=== PATIENT | male | born 1950 | race Caucasian/White ===

== ENCOUNTER → 2021-07-20 | Outpatient (CLI) | payer OTHER | END | disposition home or self-care (01) | LOC: LAB 14:05 → LAB SHORT 14:05 | DX: N39.0 Urinary tract infection, site not specified (principal) | CPT/HCPCS: 87077; 87086; 87186 ==

== ENCOUNTER → 2021-08-08 | Outpatient (CLI) | payer OTHER | END | disposition home or self-care (01) | LOC: LAB 11:45 → LAB SHORT 11:45 | DX: N39.0 Urinary tract infection, site not specified (principal) | CPT/HCPCS: 87077; 87086; 87186 ==

== ENCOUNTER 2024-01-27 08:08 | Day surgery (SDC) | payer OTHER ==
[2024-01-27] VITALS (15 sets, daily range): BP systolic 104–142; BP diastolic 70–97
[~2024-01-27] VITALS: Ht 188 cm; Wt 90.0 kg
[~2024-01-27 08:08] MED LIST: ATOR20; NS 500 ML IV SCH
--- NOTE | 2024-01-27 09:08 | NUR ---
History, Chart, Medications and Allergies reviewed before start of procedure.Lungs clear T/O to Auscultation. Pre-Op teaching done. Pt verbalizes understanding.
[2024-01-27] MEDS ORDERED: propofoL 20 ML IV ONE (09:38)
--- NOTE | 2024-01-27 09:50 | NUR ---
01/27/24 0956 Tutu Douglas CONFIRMED AND REVIEWED H&P, MEDCICATIONS, ALLERGIES, MEDICAL HISTORY, RESPIRATORY HISTORY, VITAL SIGNS, 3-LEAD EKG, CONSENTS, AND PHYSICIAN ORDERS. PATIENT CONFIRMS NPO STATUS AND AGREES WITH SCHEDULED PROCEDURE. MONITOR INTACT WITH CONTINUOUS PULSE OXIMETRY, CAPNOGRAPHY, 3-LEAD EKG, INTERMITTENT BP. SUPPLEMENTAL O2 TO BE TITRATED THROUGHOUT PROCEDURE TO MAINTAIN O2 SATURATION ABOVE 90%. PATIENT DETERMINED TO BE ASA APPROPRIATE FOR PROPOFOL SEDATION PRIOR TO START OF PROCEDURE BY DR. MANZANARES
--- NOTE | 2024-01-27 10:31 | NUR ---
DISCHARGE NOTE PT A&OX4, BREATHING RA, NO COMPLAINTS, TOLERATING PO FLUIDS, VSS. GLASSES ON PT. ABDOMEN SOFT AND NON TENDER. PT DRESSED INDEPENDENTLY IN ROOM. Patient up to Ambulate independently. Gait steady. Discharge instructions reviewed with patient. Patient verbalizes understanding. Copy given to patient to take home. Discharged via wheelchair to private car for ride home.
== END 2024-01-27 10:33 | disposition home or self-care (01) ==
LOC: ORSCMMR 08:08 → ORD 09:00 → ORSCMMR 09:00
PROVIDERS: Internal Medicine Gastroenterology
PROC: 0DJD8ZZ Inspection of Lower Intestinal Tract, Via Natural or Artificial Opening Endoscopic (ICD-10-PCS; principal; 2024-01-27 09:00)
DX: Z12.11 Encounter for screening for malignant neoplasm of colon (principal); E78.00 Pure hypercholesterolemia, unspecified; Z85.46 Personal history of malignant neoplasm of prostate; Z79.899 Other long term (current) drug therapy
CPT/HCPCS: J2704; J7040

== ENCOUNTER 2025-02-28 06:49 | Day surgery (SDC) | payer OTHER ==
[~2025-02-28] VITALS: Ht 188 cm; Wt 92.6 kg
[2025-02-28] VITALS (14 sets, daily range): BP systolic 100–141; BP diastolic 73–90
[~2025-02-28 06:49] MED LIST changes: -ATOR20; +ATOR20 PO; +IRBE75 PO; -NS 500 ML IV SCH
[2025-02-28] MEDS ORDERED: CeFAZolin Sodium 2,000 MG in NS 100 ML IV SCH ×2 (07:10→17:00)
[2025-02-28] MEDS ORDERED: Tranexamic Acid 100 ML IV SCH (07:10)
[2025-02-28] MEDS ORDERED: Ropivacaine 0.5% HCl/Pf 123.125 MG,EPINEPHrine HCL 0.25 MG,Ketorolac Tromethamine 15 MG... INFIL SCH (07:10)
[2025-02-28] MEDS ORDERED: Chlorhexidine Mouth Care 15 ML UDC MT SCH (07:10)
[2025-02-28] MEDS ORDERED: FentaNYL Citrate 50 MCG/ML 2 ML Injection ONE (07:41)
[2025-02-28] MEDS ORDERED: Phenylephrine HCl 100 MCG/ML-NS 10MLSYR (1MG/10ML) ONE (08:10)
[2025-02-28] MEDS ORDERED: Mepivacaine MPF 2% Inj 20 ML Vial ONE (08:14)
[2025-02-28] MEDS ORDERED: Albuterol 2.5 MG/3 ML VIAL INH PRN (08:25)
[2025-02-28] MEDS ORDERED: FentaNYL Citrate 50 MCG/ML 2 ML Injection IV PRN ×2 (08:25→08:30)
[2025-02-28] MEDS ORDERED: Ondansetron HCl 2 MG / ML 2ML Vial IV PRN ×2 (08:25→09:35)
[2025-02-28] MEDS ORDERED: Labetalol HCL 5 MG/ML 4ML Injection (Single Dose) IV PRN (08:30)
[2025-02-28] MEDS ORDERED: HydrALAZINE HCl 20 MG / ML 1ML Vial IV PRN (08:30)
[2025-02-28] MEDS ORDERED: HYDROmorphone HCl/Pf 1MG SYR IV PRN ×3 (08:30→09:40)
--- NOTE | 2025-02-28 08:42 | NUR ---
Ambulatory in Day Surgery, accompanied by his Chantel. History, Chart, Medications and Allergies reviewed before start of procedure. Patient confirms NPO status and agrees with scheduled surgery. Pre-Op teaching done. Pt verbalizes understanding. Patient States Post-Procedure ride home has been arranged. Pt belongings placed underneath gurney for safekeeping. Pt glasses placed in personal bag underneath gurney for safekeeping. Pt walker placed in PACU for safekeeping.
--- NOTE | 2025-02-28 09:29 | NUR ---
02/28/25 0929 Stefanie,Abby SPINAL BLOCK COMPLETED BY UPON ENTRY TO OR.
[2025-02-28] MEDS ORDERED: Metoclopramide HCl 5MG / ML 2ML Vial IV PRN (09:35)
[2025-02-28] MEDS ORDERED: Magnesium Hydroxide Conc 10 ML UDC PO PRN (09:35)
[2025-02-28] MEDS ORDERED: FLU VACC TS2025(65UP)/MF59C/PF 45 MCG/0.5 ML SYRINGE IM SCH (09:40)
[2025-02-28] MEDS ORDERED: Dexamethasone Sod Phos 10 MG/ML 1ML VIAL ONE (10:17)
[2025-02-28] MEDS ORDERED: Ondansetron HCl 2 MG / ML 2ML Vial ONE (10:17)
[2025-02-28] MEDS ORDERED: HYDROmorphone HCl/Pf 1MG SYR ONE ×2 (11:05→11:18)
[2025-02-28] MEDS ORDERED: Ketorolac Tromethamine 15mg Vial IV SCH (12:00)
--- NOTE | 2025-02-28 13:35 | NUR ---
ARRIVAL TO SURG FLOOR TO FLOOR VIA GURNEY. S/P L TKA. A&O x4, VSS. ABLE TO WIGGLE TOES & MOVE LEGS, BUT STATES RESIDUAL NUMBNESS FROM SPINAL. STATES NO PAIN AT THIS TIME. POLAR PACK IN PLACE. AWAITING POST OP VOID. CURRENTLY RESTING IN BED w/CALL LIGHT WITHIN REACH. SNACKS & DRINKS GIVEN.
[2025-02-28] MEDS ORDERED: ASPI81CH PO (16:03)
--- NOTE | 2025-02-28 17:00 | NUR ---
DISCHARGE SUMMARY S/P R TKA. A&O x4, VSS. WORKED w/THERAPY - AMBULATED IN HALLWAY & ROOM. VOIDED SUCCESSFULLY. TOLERATING FOOD & FLUIDS WELL. STATES INTERMITTENT MILD NAUSEA THAT RESOLVES w/REST. R KNEE w/TELFA, TEGADERM & IBIS WRAP - C/D/I. STATES NO PAIN. DISCHARGE INSTRUCTIONS REVIEWED & GIVEN. POLAR PACK SENT. ESCORTED OUT VIA WC.
== END 2025-02-28 16:45 | disposition home or self-care (01) ==
LOC: ORSCMMR 06:49 → ORD 08:15 → SURS 11:44 → ORSCMMR 16:45
PROVIDERS: Orthopaedic Surgery
PROC: 0SRC0JA Replacement of Right Knee Joint with Synthetic Substitute, Uncemented, Open Approach (ICD-10-PCS; principal; 2025-02-28 08:15)
DX: M17.11 Unilateral primary osteoarthritis, right knee (principal); I10 Essential (primary) hypertension; Z79.899 Other long term (current) drug therapy
CPT/HCPCS: 73560-RT; 97110; 97116; 97161; A9270; C1776; J0166; J0670; J0690; J0735; J1100; J1171; J1885; J2371; J2405; J2704; J2795; J3010; J7120